=== PATIENT | male | born 1990 | race Caucasian/White ===

== ENCOUNTER 2024-11-15 00:33 | Emergency (ER) | payer OTHER, SELFPAY ==
[2024-11-15 00:36] VITALS: BP 145/98
--- NOTE | 2024-11-15 00:46 | ED.GENMED ---
History of Present Illness
General
Chief Complaint: Fainting/Passed Out
Time Seen by Provider: 11/15/24 00:46
History of Present Illness
History of Present Illness:
TIME OF INITIAL ENCOUNTER: 12:45 AM
HPI: At 11:45 PM, the patient placed an ice pack on his 's knee. She jumped, he laughed, and shortly thereafter he had sudden loss of consciousness and all extremities were shaking for about a minute or so. He started talking after 15 seconds
and does not describe a postictal state. He did not have any tongue bite dodd and did not have any urinary incontinence. He has never had a seizure before. He reports pain to the left side of the back which is relatively mild. He denies
any benzo use or alcohol use. He has had some intermittent chest discomfort related to coughing recently as well.
EXAM:
GENERAL: Well appearing in no distress
HEENT: Moist oral mucosa, no evidence of tongue bite dodd
CARDIOVASCULAR: No murmurs, normal heart rate, regular rhythm, No chest wall tenderness
PULMONARY: No respiratory distress, breath sounds are clear and equal
ABDOMEN: Soft with no peritoneal signs, no tenderness
NEUROLOGIC: Excellent strength all extremities, no coordination deficits
PSYCHIATRIC: Appropriate mental status, normal insight and judgement
EXTREMITIES: Nontender, no edema, moves all extremities equally
SKIN: Large abrasion/contusion noted left posterior thorax with no significant tenderness
NUMBER AND COMPLEXITY OF PROBLEMS ADDRESSED AT THE ENCOUNTER
� Chronic conditions affecting care: High cholesterol, high blood pressure
� Acute Exacerbation and/or Progression of Chronic Illness: This is an acute problem
� Differential Diagnosis includes: Syncope, vasovagal event, first-time seizure, intracranial mass, dehydration, hypoglycemia
AMOUNT AND/OR COMPLEXITY OF DATA TO BE REVIEWED AND ANALYZED
� I performed an independent evaluation of and my interpretation is:
EKG: Sinus 75, nonspecific ST abnormality
CT:
X-rays: I personally reviewed chest x-ray and see no sign of fracture or other acute abnormality
Laboratory Studies: CBC and Chemistries unremarkable
Other:
� Review of other/old records: No old records available for review in [facility]
� Clinical information was obtained by an independent historian: I spoke to at bedside
� Prescriptions/Medications Considered but not given:
� Further testing considered but not performed:
RISK OF COMPLICATIONS AND/OR MORBIDITY OR MORTALITY OF PATIENT MANAGEMENT
� Social determinants of health affecting care: Lives at home
� Discussion with other providers:
� Escalation of care including admission/observation vs risk of discharge considered: The patient is well-appearing upon arrival. Possible first-time seizure therefore CT brain obtained.
ANY OTHER UPDATES:
2:15 AM: The patient is clinically unchanged. He has no significant symptoms other than some mild left-sided upper back discomfort related to the injury. He appears comfortable. He did not have any tongue bite dodd, no urinary incontinence, has
normal bicarb, does not describe any significant postictal state, CT brain unremarkable. No clear indication for admission to the hospital. No immediate response from on-call neurology. Recommend close MD follow-up and no drive until further
evaluation.
Phy Exam
Physical Exam
Physical Exam:
See HPI
Course
Orders/Labs/Results
Orders:
Orders
11/15/24 00:53
CT Head W/o Iv Contrast Urgent
Comment:
Reason For Exam: 1st time seizure
CR Chest - 2 Views Urgent
Comment:
Reason For Exam: left posterior chest trauma; cough
11/15/24 00:54
Electrocardiogram (*1) Urgent
Reason for Study: Syncope
EKG- Treatment ONCE
11/15/24 01:18
Complete Blood Count/With Diff Urgent
Comprehensive Metabolic Panel Urgent
11/15/24 02:18
Acetaminophen [Tylenol] 1,000 mg PO NOW STA
Abnormal Lab Results
11/15/24
01:18
Immature Gran % 0.7 H %
(0-0.5)
Eosinophils % 6.8 H %
(0-6)
Glucose 110 H mg/dl
(70-99)
11/15/24 01:18
11/15/24 01:18
Vital Signs
Initial and Last Documented VS:
Initial Vital Signs
Temp Pulse Resp BP
36.9 C 66 22 145/98
11/15/24 00:36 11/15/24 00:36 11/15/24 00:36 11/15/24 00:36
Last Documented Vital Signs
Temp Pulse Resp BP Pulse Ox
36.9 C 77 23 136/99 99
11/15/24 00:36 11/15/24 01:15 11/15/24 01:15 11/15/24 01:04 11/15/24 01:21
*Critical Care Note
Total Time (30-74mins, 75-104mins- exclusive of procedures): Not Applicable
ED Attending Note
-
Portions of this chart may have been created with voice recognition software.� Occasional wrong word or��sound alike� substitutions may have occurred due to the inherent limitations of voice recognition software.
Discharge Plan
Departure
Patient Disposition: Home (Routine Discharge)
Date of Disposition: 11/15/24
Time of Disposition: 02:01
Patient with high blood pressure during this ER visit?: Yes
Discharge Problem:
Syncope
Instructions: Syncope (Fainting) (DC)
Referrals:
Effie Dorsey PA [Family Provider] -
Juana Robins MD [Non-Admitting Privileges] - Next open appointment
Activity Restrictions/Additional Instructions:
The cause of your symptoms is unclear. CAT scan of the brain is normal. I see no clear abnormality on the chest x-ray. EKG and other blood work is unremarkable. I have given the contact information for a local neurologist, Dr. Robins. I
recommend no driving until reevaluation by primary care.
Interventions
Interventions:
*Risk Screen - Suicide Last Done: 11/15/24 00:36
*General Assessment Last Done: 11/15/24 01:05
*Neglect/Abuse Screening Last Done: 11/15/24 01:05
*ED- Fall Risk Assessment Last Done: 11/15/24 01:21
*ED COVID-19 Vaccine History Last Done: 11/15/24 01:05
ED- Cardiac Assessment Last Done: 11/15/24 01:21
ED- Neurological Assessment Last Done: 11/15/24 01:21
Discharge Date and Time
Print Language: EQUATORIAL GUINEAN
[2024-11-15 01:04] VITALS: BP 136/99
[2024-11-15 01:05] VITALS: BMI 37.0
[2024-11-15 01:33] LABS: % Basophils 0.8 % (0-2); % Eosinophils 6.8 % (0-6); % Immature Granulocytes 0.7 % (0-0.5); % Lymphocytes 31.6 % (20.5-51.1); % Neutrophils 51.1 % (42.2-75.2); Absolute Basophils 0.1 10^3/uL (0-0.2); Absolute Eosinophils 0.4 10^3/uL (0-0.7); Absolute Lymphocytes 1.9 10^3/uL (1.2-3.4); Absolute Monocytes 0.6 10^3/uL (0.1-0.6); Absolute Neutrophils 3.1 10^3/uL (1.4-6.5); Hematocrit 39.7 % (39.0-52.0); Hemoglobin 13.6 g/dL (13.0-18.0); Mean Corp Hgb Conc. 34.3 g/dL (33.0-37.0); Mean Corpuscular Hgb 28.2 pg (27.0-31.0); Mean Corpuscular Volume 82.2 fL (80.0-94.0); Mean Platelet Volume 9.3 fL (7.4-10.4); Nucleated Red Blood Cells % 0 % (-); Platelet Count 249 10^3/uL (130-400); Red Blood Cell Count 4.83 10^6/uL (4.70-6.10); Red Cell Dist. Width 12.3 % (11.5-14.5); White Blood Cell Count 6.1 10^3/uL (4.8-10.8)
[2024-11-15 01:44] LABS: ALT (SGPT) 44 U/L (0-50); AST (SGOT) 25 U/L (17-59); Albumin 4.1 g/dl (3.5-5.0); Alkaline Phosphatase 62 U/L (38-126); Blood Urea Nitrogen 13 mg/dl (9-20); Calcium 9.5 mg/dl (8.4-10.2); Carbon Dioxide 25 mmol/L (22-30); Chloride 105 mmol/L (98-107); Estimated Creatinine Clearance > 125 ml/min; Glucose 110 mg/dl (70-99); Potassium 4.1 mmol/L (3.5-5.1); Sodium 139 mmol/L (135-145); Total Bilirubin 0.4 mg/dl (0.2-1.3); Total Protein 6.4 g/dl (6.3-8.2); eGFR > 60.00
[2024-11-15] MEDS: TYLENOL 1000 MG PO (02:33)
== END 2024-11-15 02:48 | disposition home or self-care (01) ==
LOC: EMR 00:33
PROVIDERS: EMERGENCY PHYSICIAN Emergency Medicine; FAMILY PHYSICIAN Physician Assistant Medical
DX: R55 Syncope and collapse (principal); R03.0 Elevated blood-pressure reading, without diagnosis of hypertension
CPT/HCPCS: 99285; 70450; 71046; 80053; 85025; 93005

== ENCOUNTER → 2024-11-22 07:27 | Outpatient (REF) | payer OTHER, SELFPAY ==
--- NOTE | 2024-11-23 09:10 | EEG.RPT ---
Electroencephalogram Report
Recording
Date of EE11/22/24
Type of EEG: Routine
Length of EEG recordin minutes
Done with Video Recording: Yes
Patient Status: Outpatient
Recording Conditions: Awake, Drowsy and Asleep
Hyperventilation Performed: Yes
Photic Stimulation Performed: Yes
Report
LESS THAN 1 HOUR EEG REPORT
LESS THAN 1 HOUR EEG INTERPRETATION:
Unremarkable EEG for age
CLINICAL CORRELATION:
A normal EEG does not rule out a diagnosis of epilepsy. If clinical suspicion for seizure persists, a prolonged recording may be warranted.
Clinical correlation is advised.
METHODS:
A 21 channel digitized electroencephalogram (EEG) was performed using the 10/20 international system of electrode placement and one-lead of ECG recorded. Video was recorded. Persyst quantitative EEG analysis was performed.
ELECTROENCEPHALOGRAPHER IMPRESSION(S):
Quality of study
Good
Background
There was an unremarkable anterior-posterior voltage gradient of alpha frequency.
With eye opening the background activity changed to a low voltage mixture of frequencies.
There were no significant asymmetries of background activity noted.
Sleep
Drowsiness present
Stage I present
Hyperventilation
No activation
Photic Stimulation
No activation
ECG
Normal sinus rhythm
== END ==
LOC: EEG 07:27
PROVIDERS: ATTENDING PHYSICIAN Psychiatry & Neurology Neurology; FAMILY PHYSICIAN Physician Assistant Medical
DX: R55 Syncope and collapse (principal); R25.2 Cramp and spasm; M62.89 Other specified disorders of muscle
CPT/HCPCS: 95816

== ENCOUNTER → 2024-11-24 09:36 | Outpatient (REF) | payer OTHER, SELFPAY | LOC: RCS 09:36 | PROVIDERS: ATTENDING PHYSICIAN Psychiatry & Neurology Neurology; FAMILY PHYSICIAN Physician Assistant Medical | DX: R55 Syncope and collapse (principal); R25.2 Cramp and spasm; M62.89 Other specified disorders of muscle | CPT/HCPCS: 93225; 93226 ==

== ENCOUNTER → 2025-01-21 14:32 | Outpatient (REF) | payer OTHER, SELFPAY | LOC: PAVMRI 14:32 | PROVIDERS: ATTENDING PHYSICIAN Psychiatry & Neurology Neurology; FAMILY PHYSICIAN Physician Assistant Medical | DX: R55 Syncope and collapse (principal); R25.2 Cramp and spasm; M62.89 Other specified disorders of muscle | CPT/HCPCS: 70553; A9575 ==

== ENCOUNTER → 2025-03-22 14:56 | Outpatient (REF) | payer BC, SELFPAY | LOC: RCS 14:56 | PROVIDERS: ATTENDING PHYSICIAN Student in an Organized Health Care Education/Training Program; FAMILY PHYSICIAN Physician Assistant Medical | DX: Z87.898 Personal history of other specified conditions (principal) | CPT/HCPCS: 93306 ==